=== PATIENT | male | born 1950 | race Caucasian/White ===

== ENCOUNTER 2020-12-09 20:04 | Emergency (ER) | payer MEDICARE, OTHER ==
[2020-12-09 20:40] VITALS: BP 102/82; PULSE 70; RESP 18; TEMP 98.7
--- NOTE | 2020-12-09 21:32 | ED ---
Psych HPI - General Chief Complaint: Psychiatric Symptoms Stated Complaint: Mental Health Time Seen by Provider: 12/09/20 20:30 Source: patient, EMS, RN notes reviewed Mode of arrival: EMS Limitations: physical limitation - History of Present Illness Initial Comments: This a 70-year-old male presents emergency Department from [facility] for psychiatric evaluation. Patient states that he is depressed, suicidal. Patient states he does not have a point a living. Denies alcohol or drug abuse. Patient has no new complaints otherwise. Patient denies being homicidal. She's had no reported new medication changes. - Related Data Home Medications Medication Instructions Recorded Confirmed Loperamide HCl [Loperamide] 2 mg PO DAILY PRN 11/12/13 12/07/15 Tamsulosin HCl [Flomax] 0.4 mg PO HS 11/12/13 12/07/15 Diazepam [Valium] 10 mg PO Q8H PRN 12/07/15 12/07/15 Dicyclomine [Bentyl] 20 mg PO QID 12/07/15 12/07/15 Previous Rx's Medication Instructions Recorded Omeprazole [PriLOSEC] 20 mg PO AC-BRKFST #30 cap 12/10/15 Sulfamethox-Tmp 800-160Mg [Bactrim 1 tab PO Q12HR #14 tab 12/10/15 DS 800-160 mg] traMADol HCl [Ultram] 50 mg PO QID PRN #30 tab 12/10/15 Allergies Allergy/AdvReac Type Severity Reaction Status Date / Time egg Allergy Unknown Verified 12/07/15 11:19 milk Allergy Diarrhea Verified 12/07/15 11:19 Review of Systems ROS Statement: Those systems with pertinent positive or pertinent negative responses have been documented in the HPI. ROS Other: All systems not noted in ROS Statement are negative. 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 Past Anesthesia/Blood Transfusion Reactions: No Reported Reaction Additional Past Anesthesia/Blood Transfusion Reaction / Comment(s): Pt recieved blood in 1997 without reaction. Past Psychological History: No Psychological Hx Reported Past Alcohol Use History: None Reported Past Drug Use History: None Reported - Past Family History Father Family Medical History: Cancer Additional Family Medical History / Comment(s): Father of lung cancer which metastasized. Mother Family Medical History: Coronary Artery Disease (CAD) Additional Family Medical History / Comment(s): Mother had CABG. She is alive and is 89yrs old. General Exam Limitations: physical limitation General appearance: alert, in no apparent distress Head exam: Present: atraumatic, normocephalic, normal inspection Eye exam: Present: normal appearance, PERRL, EOMI. Absent: scleral icterus, conjunctival injection, periorbital swelling Respiratory exam: Present: normal lung sounds bilaterally. Absent: respiratory distress, wheezes, rales, rhonchi, stridor Cardiovascular Exam: Present: regular rate, normal rhythm, normal heart sounds. Absent: systolic murmur, diastolic murmur, rubs, gallop, clicks Neurological exam: Present: alert Psychiatric exam: Present: depressed Skin exam: Present: warm, dry, intact, normal color. Absent: rash Course Vital Signs 12/09/20 20:29 Temperature 98.7 F Pulse Rate 70 Respiratory 18 Rate Blood Pressure 102/82 O2 Sat by Pulse 96 Oximetry Medical Decision Making - Medical Decision Making Patient evaluated by EPS recommends patient be discharged back to [facility]. Disposition Clinical Impression: Depression Disposition: HOME SELF-CARE Condition: Stable Instructions (If sedation given, give patient instructions): Depression (ED) Additional Instructions: Please return to the Emergency Department if symptoms worsen or any other concerns. Is patient prescribed a controlled substance at d/c from ED?: No Referrals: Fidel Breaux MD [Primary Care Provider] - 1-2 days Time of Disposition: 22:58
== END 2020-12-10 00:36 | disposition home or self-care (01) ==
LOC: EC 20:04
DX: F32.9 Major depressive disorder, single episode, unspecified (principal); G80.9 Cerebral palsy, unspecified; M19.032 Primary osteoarthritis, left wrist; M19.031 Primary osteoarthritis, right wrist; Z87.11 Personal history of peptic ulcer disease; Z99.3 Dependence on wheelchair
CPT/HCPCS: 82075; 99283